=== PATIENT | female | born 1990 | race Two or more races ===

== ENCOUNTER 2019-08-14 12:08 | Emergency (ER) | payer MEDICAID ==
[~2019-08-14] VITALS: Ht 160 cm; Wt 120.2 kg
[~2019-08-14 12:08] MED LIST: ACET250T2 PO; DEXAMETHASON; DIVALPROEX SODIUM PO; IRON; MAG OXIDE; OXYC-302
[2019-08-14] MEDS ORDERED: KETOROLAC 30 MG/1 ML ONE (12:57)
[2019-08-14 13:00] LABS: BASOPHILS # (AUTO) 0.02 x10^3/uL (0-0.1); BASOPHILS % (AUTO) 0 % (0-1); EOSINOPHILS # (AUTO) 0.11 x10^3/uL (0-0.4); EOSINOPHILS % (AUTO) 2 % (1-7); LYMPHOCYTES % (AUTO) 16 % (22-44); MD NO; MEAN CORPUSCULAR HEMOGLOBIN 29.2 pg (27.0-34.8); MEAN PLATELET VOLUME 10.2 fL (7.4-10.4); MONOCYTES # (AUTO) 0.38 x10^3/uL (0.2-0.8); MONOCYTES % (AUTO) 7 % (2-9); NEUTROPHILS # (AUTO) 4.21 x10^3/uL (1.8-6.8); NEUTROPHILS % (AUTO) 75 % (42-75); PLATELET COUNT 143 x10^3/uL (130-400); RED BLOOD COUNT 4.36 x10^6/uL (3.82-5.3); RED CELL DISTRIBUTION WIDTH 17.3 % (9.6-15.2)
[2019-08-14] MEDS ORDERED: KETOROLAC 30 MG/1 ML IVPush ONE (13:00)
[2019-08-14] MEDS ORDERED: VANCOMYCIN 2,400 MG in SODIUM CHLORIDE 0.9% 500 ML IV ONE (13:00)
[2019-08-14] MEDS ORDERED: SODIUM CHLORIDE FLUSH 10ML SYR IVF ONE (13:00)
[2019-08-14] MEDS ORDERED: VANCOMYCIN PER PHARMACY MC PRN (13:00)
--- NOTE | 2019-08-14 13:05 | NUR ---
PIV STARTED AND PATIENT MEDICATED PER SEP.
[2019-08-14 13:09] LABS: ALBUMIN 3.5 g/dL (3.4-5.0); ANION GAP 9 mmol/L (5-15); CALCIUM 8.8 mg/dL (8.5-10.1); CHLORIDE 112 mmol/L (98-107); CREATININE 0.63 mg/dL (0.55-1.02)
--- NOTE | 2019-08-14 13:20 | NUR ---
pt to ct at this time.
[2019-08-14] MEDS ORDERED: OXYcodone/APAP 5/325MG TABLET ONE ×2 (13:56→16:52)
[2019-08-14] MEDS ORDERED: OXYcodone/APAP 5/325MG TABLET PO ONE (14:00)
--- NOTE | 2019-08-14 14:15 | NUR ---
IV VANCO STARTED.
[2019-08-14] MEDS ORDERED: DIPHENHYDRAMINE 50 MG/ML, 1ML ONE (16:45)
--- NOTE | 2019-08-14 16:55 | NUR ---
PT C/O ITCHING. DR. JACOBO NOTIFIED. BENADRYL ORDERED AND GIVEN. PT GIVEN ANOTHER PERCOCET FOR PAIN.
[2019-08-14] MEDS ORDERED: DIPHENHYDRAMINE 50 MG/ML, 1ML IVPush ONE (17:00)
[2019-08-14 18:18] VITALS: BP 105/66
--- NOTE | 2019-08-14 19:00 | NUR ---
Patient given discharge instructions and they have confirmed that they understand the instructions. Patient ambulatory with steady gait.
== END 2019-08-14 19:01 | disposition home or self-care (01) ==
LOC: ED 13:53
DX: L03.211 Cellulitis of face (principal)
CPT/HCPCS: 36415; 70487; 80048; 82040; 85025; 96365; 96366; 96375; 99284; J1200; J1885; J3370; J7040